=== PATIENT | female | born 1970 | race Caucasian/White ===

== ENCOUNTER 2020-03-23 19:23 | Emergency (ER) | payer OTHER ==
[~2020-03-23] VITALS: Ht 167.6 cm; Wt 83.6 kg
[~2020-03-23 19:23] MED LIST: none per pt
[2020-03-23 21:23] LABS: BASOPHILS % (AUTO) 1 % (0-1); EOSINOPHILS % (AUTO) 3 % (1-7); LYMPHOCYTES % (AUTO) 23 % (22-44); MEAN CORPUSCULAR HEMOGLOBIN 32.5 pg (27.0-34.8); MEAN CORPUSCULAR HGB CONC 34.4 g/dL (32.4-35.8); MONOCYTES % (AUTO) 7 % (2-9); NEUTROPHILS % (AUTO) 67 % (42-75); PLATELET COUNT 324 x10^3/uL (130-400); RED BLOOD COUNT 4.26 x10^6/uL (3.82-5.3); RED CELL DISTRIBUTION WIDTH 12.8 % (9.6-15.2)
[2020-03-23 21:25] LABS: MD NO
[2020-03-23 21:33] LABS: CHLORIDE 108 mmol/L (98-107)
[2020-03-23 21:42] LABS: ALANINE AMINOTRANSFERASE 26 U/L (12-78); ALBUMIN 3.6 g/dL (3.4-5.0); ALKALINE PHOSPHATASE 83 U/L (45-117); ANION GAP 3 mmol/L (5-15); BILIRUBIN,TOTAL 0.4 mg/dL (0.2-1.0); CALCIUM 8.4 mg/dL (8.5-10.1); CREATININE 0.83 mg/dL (0.55-1.02); TOTAL PROTEIN 7.3 g/dL (6.4-8.2); TROPONIN I < 0.015 ng/mL (0.000-0.045)
[2020-03-23] MEDS ORDERED: ONDANSETRON ODT 4 MG ONE (22:37)
[2020-03-23] MEDS ORDERED: ONDANSETRON ODT 4 MG PO ONE (23:00)
[2020-03-23] MEDS ORDERED: MECLIZINE CHEWABLE 25 MG TAB PO ONE (23:30)
[2020-03-23] MEDS ORDERED: SODIUM CHLORIDE FLUSH 10ML SYR IVF ONE (23:30)
[2020-03-23] MEDS ORDERED: SODIUM CHLORIDE 0.9% 1,000ML IVBOLUS ONE (23:30)
[2020-03-23] MEDS ORDERED: OMNIPAQUE 350 MG/ML, 100ML BOTTLE ONE (23:55)
[2020-03-23] MEDS ORDERED: MECLIZINE CHEWABLE 25 MG TAB ONE (23:55)
[2020-03-24 01:54] VITALS: BP 109/68
--- NOTE | 2020-03-24 01:56 | NUR ---
Pt states feeling less dizzy. Ambulatory around room with no issue. Pt with stable vs. IV dc'd intact. pt instructed not to drive home and has ride. Pt given and reviewed DC instructions with understanding stated. RX reviewd. pt ambulatory out of ed without difficulty.
== END 2020-03-24 01:58 | disposition home or self-care (01) ==
LOC: ED 03-24 00:28
DX: J15.9 Unspecified bacterial pneumonia (principal); R51.9 Headache, unspecified; R50.9 Fever, unspecified; R42 Dizziness and giddiness; R05 Cough; R11.0 Nausea; I49.9 Cardiac arrhythmia, unspecified; R07.89 Other chest pain; R06.02 Shortness of breath; M79.10 Myalgia, unspecified site
CPT/HCPCS: 36415; 70450; 70496; 70498; 71045; 80053; 84484; 85025; 93005; 96360; 96361; 99285; J7030; Q0162; Q9967